=== PATIENT | female | born 1990 | race Caucasian/White ===

== ENCOUNTER 2020-12-25 17:40 | Emergency (ER) | payer MEDICAID ==
[~2020-12-25] VITALS: Ht 152.4 cm; Wt 52.0 kg
[2020-12-25] MEDS ORDERED: SODIUM CHLORIDE 0.9% 1,000 ML IV ONE (18:30)
[2020-12-25 18:52] LABS: BASOPHILS % 0.5 % (0.0-2.0); EOSINOPHILS % 2.8 % (0.0-5.0); HEMATOCRIT. 38.6 % (36.0-48.0); HEMOGLOBIN. 12.7 g/dL (12.0-16.0); LYMPHOCYTES % 21.7 % (20.0-50.0); MEAN CORPUSCULAR HEMOGLOBIN 28.6 pg (28.0-32.0); MEAN CORPUSCULAR VOLUME 86.7 fL (81.0-99.0); MEAN PLATELET VOLUME 11.1 fl (7.4-10.4); MONOCYTES % 4.8 % (2.0-8.0); NEUTROPHILS % 70.2 % (40.0-76.0); PLATELET 179 x1000/uL (130-400); RED BLOOD CELL COUNT 4.45 mill/uL (4.2-5.4); RED CELL DISTRIBUTION WIDTH 13.5 % (11.6-14.6)
[2020-12-25 19:00] LABS: CHLORIDE 108 mEq/L (98-107)
[2020-12-25 19:08] LABS: CREATINE KINASE 89 IU/L (26-192)
[2020-12-25 19:45] LABS: HCG SCREEN NEGATIVE
[2020-12-25] MEDS ORDERED: LORA-249 MT (19:49)
[2020-12-25 20:12] VITALS: BP 100/82
== END 2020-12-25 20:14 | disposition home or self-care (01) ==
LOC: ER 17:40
DX: F41.9 Anxiety disorder, unspecified (principal); M79.602 Pain in left arm; R06.02 Shortness of breath; R07.89 Other chest pain; R51.9 Headache, unspecified; M54.9 Dorsalgia, unspecified; E86.0 Dehydration
CPT/HCPCS: 36415; 71045; 80053; 82550; 84443; 84484; 84703; 85025; 93005; 96360; 99285; J7030

== ENCOUNTER 2021-01-17 21:06 | Emergency (ER) | payer MEDICAID, OTHER ==
[~2021-01-17] VITALS: Ht 152.4 cm; Wt 54.0 kg
[~2021-01-17 21:06] MED LIST: LORA-249 MT
[2021-01-17 22:14] VITALS: BP 116/49
[2021-01-17 22:47] LABS: CLARITY URINE CLEAR (CLEAR); COLOR URINE YELLOW (YELLOW); KETONES URINE NEGATIVE (NEGATIVE); LEUKOCYTE ESTERASE URINE NEGATIVE (NEGATIVE); NITRITE URINE NEGATIVE (NEGATIVE); OCCULT BLOOD URINE NEGATIVE (NEGATIVE); PH URINE 6.5 (4.5-8.0); PROTEIN URINE NEGATIVE (NEGATIVE); SPECIFIC GRAVITY URINE 1.025 (1.005-1.030); UROBILINOGEN URINE 0.2 E.U./dL (0.2-1.0)
[2021-01-17] MEDS ORDERED: NITR-87 MT (23:22)
== END 2021-01-17 23:49 | disposition home or self-care (01) ==
LOC: ER 21:06
DX: N39.0 Urinary tract infection, site not specified (principal)
CPT/HCPCS: 81003; 81025; 87077; 99283